=== PATIENT | female | born 1985 | race Caucasian/White ===

== ENCOUNTER 2021-06-24 09:35 | Emergency (ER) | payer OTHER, MEDICAID, SELFPAY ==
[2021-06-24 09:40] VITALS: BP 140/75; PULSE 63; RESP 14; TEMP 36.7; O2SAT 98; BMI 30.4
[2021-06-24 10:08] LABS: COVID19 -Nasal RAPID Negative (Negative)
--- NOTE | 2021-06-24 10:35 | ED_ITS ---
HPI - URI/Sore Throat General Chief Complaint: Upper Respiratory Symptoms Stated Complaint: sore throat and body aches, started yesterday Source: patient Mode of arrival: Ambulatory Limitations: no limitations History of Present Illness HPI Narrative: Patient complains of sore throat, burning sensation for the past 2 days. History of strep throat in feels like the same. No history of tonsillectomy. Gets strep throat every 3 years on average. No trouble breathing. No fever. Related Data Previous Rx's Medication Instructions Recorded promethazine 25 mg tablet 25 mg PO Q6H PRN #5 tab 03/17/20 amoxicillin 500 mg capsule 500 mg PO BID #20 cap 06/24/21 Allergies Allergy/AdvReac Type Severity Reaction Status Date / Time hydrocodone Allergy Mild N/V Verified 03/17/20 14:56 acetaminophen [From PERCOCET] Allergy Unknown Verified 03/17/20 14:56 oxycodone [From PERCOCET] Allergy Unknown Verified 03/17/20 14:56 quetiapine [From Seroquel] Allergy Verified 06/24/21 09:44 Review of Systems Review of Systems Narrative: GENERAL: Denies chills, fatigue, malaise, fever, sweats. HEENT: Denies sinus pain, ear pain, complains of sore throat RESPIRATORY: Denies dyspnea, cough CARDIOVASCULAR: Denies chest pain, palpitations GASTROINTESTINAL: Denies nausea, vomiting, abdominal pain : Denies dysuria, frequency, hematuria MUSCULOSKELETAL: denies muscle or bony pain SKIN: Denies rash, skin lesions NEUROLOGIC: Denies weakness, numbness ROS Unobtainable: All systems reviewed & are unremarkable except as noted in HPI and below Patient History Medical History Acne ADHD Allergies Anxiety Autism Colitis Eczema Frequent UTI Heart murmur Hepatitis C Human papilloma virus Migraines Painful menstrual periods Post traumatic stress disorder (PTSD) Psoriasis Seizures Surgical History Anesthesia History of hand surgery Family History Mother Hypertension Brother Mental health problem Grandfather Diabetes mellitus Family/Other Mental health problem Social History marital status: unmarried,single Smoking Status: Current every day smoker alcohol intake: never substance use type: does not use Smoking Status: Current every day smoker alcohol intake frequency: holidays/special occasions only Substance Use Type: does not use Exam Narrative Exam Narrative: GENERAL: in no distress, not toxic not dyspneic HEAD: Normocephalic. EYES: Pupils equal round No scleral icterus. No injection no discharge ENT: Mucous membranes moist. Bilateral pharyngeal erythema but no edema, no exudates. No tongue elevation number drooling no malocclusion no trismus NECK: Trachea midline. No stridor, mild bilateral submandibular tenderness. No edema or erythema. CARDIOVASCULAR: Regular rate and rhythm without murmurs RESPIRATORY: Clear to auscultation. Breath sounds equal bilaterally. No wheezes, rales, or rhonchi. NEURO: AOx4. SKIN: Warm and dry PSYCH: Not anxious, is cooperative Initial Vital Signs Initial Vital Signs: Vital Signs Temperature 98.1 F 06/24/21 09:40 Pulse Rate 63 06/24/21 09:40 Respiratory Rate 14 06/24/21 09:40 Blood Pressure 140/75 06/24/21 09:40 Pulse Oximetry 98 06/24/21 09:40 Course Course Course Narrative: No new issues during course of stay. Orders Ordered: Discontinued Medications Amoxicillin (Amoxicillin 250 Mg Capsule) 500 mg PO NOW ONE Stop: 06/24/21 10:36 Last Admin: 06/24/21 10:41 Dose: 500 mg Documented by: KATERYNA Reevaluation(s) Reevaluation #1: Patient agrees with treatment plan and return precautions reviewed. Time: 10:39 Vital Signs Vital signs: Vital Signs - 8 hr 06/24/21 09:40 Temperature 98.1 F Pulse Rate 63 Respiratory Rate 14 Blood Pressure 140/75 Pulse Oximetry 98 MDM - URI/Sore Throat Differential Diagnosis Differential diagnosis: Likely upper respiratory infection, viral infection and pharyngitis Lab Data Labs: Lab Results 06/24/21 Range/Units 09:45 SARS-CoV-2 (PCR) Negative (Negative) Point of Care Testing Rapid Strep A Negative MDM Narrative Medical decision making narrative: Will treat clinically for strep throat. Cultures are pending. History of frequent strep throat. Return precautions reviewed with her. Exam otherwise reassuring. Not toxic at discharge Discharge Plan Departure Patient Disposition: Home Clinical Impression: Pharyngitis Qualifiers: Pharyngitis/tonsillitis etiology: unspecified etiology Qualified Code(s): J02.9 - Acute pharyngitis, unspecified Instructions: DI for Pharyngitis/Tonsillopharyngitis -- Adult Activity Restrictions/Additional Instructions: Call provided referral line to teen family doctor. Call today. Keep well hydrated. May continue Tylenol or ibuprofen for pain. Return if worsening questions or concerns or any trouble breathing or any oral swelling. Prescriptions: New amoxicillin 500 mg capsule 500 mg PO BID Qty: 20 RF: 0 No Action promethazine 25 mg tablet 25 mg PO Q6H PRN (Reason: nausea and vomiting) Qty: 5 RF: 0 Referrals: [facility] [Outside]
[2021-06-24] MEDS: AMOXICILLIN 250 MG CAPSULE 500 MG PO (10:41)
[2021-06-24 10:45] VITALS: BP 122/69; PULSE 54; RESP 16; O2SAT 99
== END 2021-06-24 10:47 | disposition home or self-care (01) ==
PROVIDERS: Emergency Provider Emergency Medicine
DX: J02.9 Acute pharyngitis, unspecified (principal); Z20.822 Contact with and (suspected) exposure to COVID-19
CPT/HCPCS: 87635; 87880; 99283; C9803

== ENCOUNTER 2021-09-14 12:59 | Emergency (ER) | payer OTHER, MEDICAID, SELFPAY ==
[2021-09-14 13:02] VITALS: BP 136/77; PULSE 87; RESP 16; TEMP 36.6; O2SAT 99; BMI 22.7
--- NOTE | 2021-09-14 13:34 | ED_ITS ---
HPI - Skin/Abscess/Foreign Bdy <Yari Resendiz PA-C - Last Filed: 09/14/21 16:48> General Chief complaint: Skin/Abscess/Foreign Body Stated complaint: bug bites/ 2 days Time Seen by Provider: 09/14/21 13:13 Source: patient Mode of arrival: Ambulatory Limitations: no limitations History of Present Illness HPI narrative: 36-year-old female with past medical history anxiety presents to the ED with 2 days of all over body rashes. Patient states that she might have been bit by some bugs that caused her sores. Patient endorses itchiness, some discharge from the wounds. Patient reports painless genital lesions. Patient is also requesting a STI check. Patient has had unprotected sex with 2 partners over the last year. Patient denies fever, chills, chest pain, shortness of breath, cough, nausea, vomiting, abdominal pain, dysuria, lightheadedness, dizziness, syncope. States she was treated for hepatitis C 12 years ago. Patient endorses methamphetamine use, last use was 4 days ago. Patient denies recent or current IVDU, last IVDU i 12 years ago. Related Data Previous Rx's Medication Instructions Recorded promethazine 25 mg tablet 25 mg PO Q6H PRN #5 tab 03/17/20 amoxicillin 500 mg capsule 500 mg PO BID #20 cap 06/24/21 cephalexin 500 mg capsule 500 mg PO QID 7 Days #28 cap 09/14/21 sulfamethoxazole 800 1 tab PO BID 7 Days #14 tab 09/14/21 mg-trimethoprim 160 mg tablet (Bactrim DS) Allergies Allergy/AdvReac Type Severity Reaction Status Date / Time hydrocodone Allergy Mild N/V Verified 09/14/21 13:08 acetaminophen [From PERCOCET] Allergy Unknown Verified 09/14/21 13:08 oxycodone [From PERCOCET] Allergy Unknown Verified 09/14/21 13:08 quetiapine [From Seroquel] Allergy Verified 09/14/21 13:08 Review of Systems <Yari Resendiz PA-C - Last Filed: 09/14/21 16:48> Review of Systems ROS Unobtainable: All systems reviewed & are unremarkable except as noted in HPI and below Constitutional Constitutional: Denies chills, Denies fatigue, Denies fever(s), Denies frequent falls, Denies lethargy and Denies weakness Eyes Eyes: Denies change in vision, Denies eye discharge, Denies irritation and Denies loss of vision ENT Ears, Nose, Mouth, and Throat: Denies change in voice, Denies dizziness, Denies neck pain, Denies sore throat and Denies throat swelling Cardiovascular Cardiovascular: Denies chest pain, Denies irregular heart rhythm, Denies lighth eadedness, Denies palpitations, Denies dyspnea, Denies dyspnea on exertion and Denies orthopnea Respiratory Respiratory: Denies cough, Denies dyspnea, Denies dyspnea on exertion and Denies wheezing Gastrointestinal Gastrointestinal: Denies abdominal pain, Denies change in bowel habits, Denies diarrhea, Denies nausea and Denies vomiting Genitourinary Genitourinary: Denies hematuria, Denies flank pain, Denies urinary incontinence and Denies urinary urgency Musculoskeletal Musculoskeletal: Denies back pain, Denies muscle weakness, Denies neck pain, Denies numbness and Denies tingling Integumentary/Breasts Skin/Breast: Reports pruritus, Denies erythema, Reports rash and Denies wounds Comments: All over itchy body rash, with discharge Neurologic Neurologic: Denies behavioral changes, Denies confusion, Denies dizziness, Denies frequent falls, Denies loss of vision, Denies numbness, Denies tingling and Denies weakness Psychiatric Psychiatric: Denies anxiety, Denies behavioral changes, Denies confusion, Denies depression, Denies homicidal ideation and Denies suicidal ideation Endocrine Endocrine: Denies fatigue, Denies flushing and Denies palpitations Hematologic/Lymphatic Hematologic/Lymphatic: Denies easy bruising Allergic/Immunologic Allergic/Immunologic: Denies urticaria, Denies throat swelling and Denies wheezing Patient History <Yari Resendiz PA-C - Last Filed: 09/14/21 16:48> Medical History Acne ADHD Allergies Anxiety Autism Colitis Eczema Frequent UTI Heart murmur Hepatitis C Human papilloma virus Migraines Painful menstrual periods Post traumatic stress disorder (PTSD) Psoriasis Seizures Surgical History Anesthesia History of hand surgery Family History Mother Hypertension Brother Mental health problem Grandfather Diabetes mellitus Family/Other Mental health problem Social History marital status: unmarried,single Smoking Status: Current every day smoker alcohol intake: never substance use type: does not use Smoking Status: Current every day smoker alcohol intake frequency: holidays/special occasions only Substance Use Type: marijuana Exam <Yari Resendiz PA-C - Last Filed: 09/14/21 16:48> Initial Vital Signs Initial Vital Signs: Vital Signs Temperature 97.8 F 09/14/21 13:02 Pulse Rate 87 09/14/21 13:02 Respiratory Rate 16 09/14/21 13:02 Blood Pressure 136/77 09/14/21 13:02 Pulse Oximetry 99 09/14/21 13:02 Const General: cooperative HENMT Head: normal to inspection Eyes General: appearance normal, both eyes and all related structures Neck Neck: normal visual inspection Chest Chest: normal inspection of the chest Resp Effort & Inspection: normal respiratory effort Auscultation: clear to auscultation bilaterally Cardio Rate: regular rate Rhythm: regular rhythm Other: White, cheesy discharge in the genital region. Painless ulcers noted in the left vulva Skin Rashes: rashes noted Other: Diffuse, All over body sores, itchy, erythematous. No discharge visualized on exam <Rogelio Arias DO - Last Filed: 09/14/21 17:33> Initial Vital Signs Initial Vital Signs: Vital Signs Temperature 97.8 F 09/14/21 13:02 Pulse Rate 87 09/14/21 13:02 Respiratory Rate 16 09/14/21 13:02 Blood Pressure 136/77 09/14/21 13:02 Pulse Oximetry 99 09/14/21 13:02 Course <Yari Resendiz PA-C - Last Filed: 09/14/21 16:48> Orders Ordered: ED Orders 09/14/21 13:58 Chlamydia Gonorrhea PCR -URINE Stat 09/14/21 14:25 HIV 1 & 2 Ab/Ag 4th Gen Combo Stat Hep C Virus Ab w/Reflex Quant Stat Hepatitis B Surface Antigen Stat RPR W Reflex to Titer Stat Discontinued Medications Cephalexin HCl (Cephalexin 250 Mg Capsule) 500 mg PO NOW ONE Stop: 09/14/21 13:54 Last Admin: 09/14/21 14:14 Dose: 500 mg Documented by: CASSANDRA Fluconazole (Fluconazole 150 Mg Tablet) 150 mg PO NOW ONE Stop: 09/14/21 13:56 Last Admin: 09/14/21 14:15 Dose: 150 mg Documented by: CASSANDRA Trimethoprim/Sulfamethoxazole (Trimeth/Sulfa 160/800 (Ds) Tablet) 1 tab PO NOW ONE Stop: 09/14/21 13:54 Last Admin: 09/14/21 14:14 Dose: 1 tab Documented by: CASSANDRA Vital Signs Vital signs: Vital Signs - 8 hr 09/14/21 13:02 Temperature 97.8 F Pulse Rate 87 Respiratory Rate 16 Blood Pressure 136/77 Pulse Oximetry 99 <Rogelio Arias DO - Last Filed: 09/14/21 17:33> Orders Ordered: ED Orders 09/14/21 13:58 Chlamydia Gonorrhea PCR -URINE Stat 09/14/21 14:25 HIV 1 & 2 Ab/Ag 4th Gen Combo Stat Hep C Virus Ab w/Reflex Quant Stat Hepatitis B Surface Antigen Stat RPR W Reflex to Titer Stat Discontinued Medications Cephalexin HCl (Cephalexin 250 Mg Capsule) 500 mg PO NOW ONE Stop: 09/14/21 13:54 Last Admin: 09/14/21 14:14 Dose: 500 mg Documented by: CASSANDRA Fluconazole (Fluconazole 150 Mg Tablet) 150 mg PO NOW ONE Stop: 09/14/21 13:56 Last Admin: 09/14/21 14:15 Dose: 150 mg Documented by: CASSANDRA Trimethoprim/Sulfamethoxazole (Trimeth/Sulfa 160/800 (Ds) Tablet) 1 tab PO NOW ONE Stop: 09/14/21 13:54 Last Admin: 09/14/21 14:14 Dose: 1 tab Documented by: CASSANDRA Vital Signs Vital signs: Vital Signs - 8 hr 09/14/21 13:02 Temperature 97.8 F Pulse Rate 87 Respiratory Rate 16 Blood Pressure 136/77 Pulse Oximetry 99 MDM - Skin/Abscess/Foreign Bdy <Yari Resendiz PA-C - Last Filed: 09/14/21 16:48> Lab Data Labs: Lab Results 09/14/21 Range/Units 13:58 Ur Chlamydia DNA (PCR) Not detected N gonorrhoeae DNA (PCR) Not detected MDM Narrative Medical decision making narrative: 36-year-old female with past medical history anxiety presents to the ED with 2 days of all over body rashes. Concern for cellulitis versus STI. Will test for GC, RPR, hepatitis-B, hepatitis-C, HIV. Will start patient on cephalexin and Bactrim for the rash. GC negative. Patient will be notified of other STI results over the phone. Discharge home with prescriptions for Bactrim and cephalexin. ED return precautions discussed. <Rogelio Arias DO - Last Filed: 09/14/21 17:33> Lab Data Labs: Lab Results 09/14/21 Range/Units 13:58 Ur Chlamydia DNA (PCR) Not detected N gonorrhoeae DNA (PCR) Not detected Discharge Plan Departure Patient Disposition: Home Clinical Impression: Cellulitis Instructions: DI for Cellulitis -- Adult Activity Restrictions/Additional Instructions: You were evaluated for rash in the ED today. Your rash appears to be infected. Are being treated with the antibiotics cephalexin and Bactrim for the skin infection. Please continue to take the antibiotics and finish the course. Return to the ED if you notice any worsening of your symptoms, you experience fever, chills, chest pain, shortness of breath. You also requested STI testing today. You are negative for chlamydia and gonorrhea. The syphilis, hepatitis- B, hepatitis-C, HIV test results will be back in 1-2 days, you will be called if there are any abnormal test results. Please follow-up with your PCP. Prescriptions: New cephalexin 500 mg capsule 500 mg PO QID 7 Days Qty: 28 0RF sulfamethoxazole-trimethoprim [Bactrim DS] 800-160 mg tablet 1 tab PO BID 7 Days Qty: 14 0RF No Action promethazine 25 mg tablet 25 mg PO Q6H PRN (Reason: nausea and vomiting) Qty: 5 0RF amoxicillin 500 mg capsule 500 mg PO BID Qty: 20 0RF <Rogelio Arias DO - Last Filed: 09/14/21 17:33> Cosign ED Attending Cosignature Attestation: Dr Arias Co-Sign Statement: I was available for consultation during this patient's emergency department visit. This chart is signed by myself for administrative purposes only. I did not have direct contact with this patient during this visit. They were seen independently by the APC.
[2021-09-14] MEDS: TRIMETH/SULFA 160/800 (DS) TABLET 1 TAB PO (14:14)
[2021-09-14] MEDS: cephALEXin 250 MG CAPSULE 500 MG PO (14:14)
[2021-09-14] MEDS: FLUCONAZOLE 150 MG TABLET PO (14:15)
[2021-09-14 15:58] LABS: Urine N gonorrhoeae NOT DETECTED
[2021-09-14 16:07] LABS: Urine Chlamydia NOT DETECTED
[2021-09-15 08:09] LABS: RPR Screen Non Reactive (Non Reactive)
[2021-09-16 17:30] LABS: Hepatitis B Surface Antigen NEGATIVE s/c (NEGATIVE)
[2021-09-16 17:46] LABS: HIV 1 & 2 Ab/Ag 4th Gen Combo NEGATIVE (NEGATIVE); Hep C Virus Ab w/Reflex Quant REACTIVE s/c (NEGATIVE)
== END 2021-09-14 17:00 | disposition home or self-care (01) ==
PROVIDERS: Emergency Provider Student in an Organized Health Care Education/Training Program
DX: L03.90 Cellulitis, unspecified (principal); R21 Rash and other nonspecific skin eruption
CPT/HCPCS: 36415; 86592; 86803; 87340; 87389; 87491; 87522; 87591; 99283

== ENCOUNTER 2021-11-16 10:39 | Emergency (ER) | payer OTHER, MEDICAID, SELFPAY ==
--- NOTE | 2021-11-16 10:54 | ED.GENADULT ---
HPI - General Adult General Chief complaint: Upper Respiratory Symptoms Stated complaint: shaky/cough/chills x3 days Time Seen by Provider: 11/16/21 10:52 Source: patient Mode of arrival: Ambulatory Limitations: no limitations History of Present Illness HPI narrative: 36-year-old female with complaint of 3 days of chills, shakiness and nonproductive cough. Patient has had a little bit nasal congestion. She has little bit of shortness of breath. No chest pain. She has had some nausea. She has had a little bit of diarrhea but states she gets that frequently normally. Patient denies any dysuria urgency or frequency. She states she was treated for cellulitis on her lower extremities and abdomen which has significantly improved. Patient denies any medical issues but states she is allergic to Seroquel several other medications. She does smoke, she does drink alcohol, she denies any illicit although in EMR has marijuana. She is vaccinated x2 for COVID. Related Data Previous Rx's Medication Instructions Recorded promethazine 25 mg tablet 25 mg PO Q6H PRN #5 tab 03/17/20 amoxicillin 500 mg capsule 500 mg PO BID #20 cap 06/24/21 Allergies Allergy/AdvReac Type Severity Reaction Status Date / Time hydrocodone Allergy Mild N/V Verified 11/16/21 10:56 acetaminophen [From PERCOCET] Allergy Unknown Verified 11/16/21 10:56 oxycodone [From PERCOCET] Allergy Unknown Verified 11/16/21 10:56 quetiapine [From Seroquel] Allergy Verified 11/16/21 10:56 Review of Systems Review of Systems ROS Unobtainable: All systems reviewed & are unremarkable except as noted in HPI and below Patient History Medical History Acne ADHD Allergies Anxiety Autism Colitis Eczema Frequent UTI Heart murmur Hepatitis C Human papilloma virus Migraines Painful menstrual periods Post traumatic stress disorder (PTSD) Psoriasis Seizures Surgical History Anesthesia History of hand surgery Family History Mother Hypertension Brother Mental health problem Grandfather Diabetes mellitus Family/Other Mental health problem Social History marital status: unmarried,single Smoking Status: Current every day smoker alcohol intake: never substance use type: does not use Smoking Status: Current every day smoker alcohol intake frequency: holidays/special occasions only Substance Use Type: marijuana Exam Narrative Exam Narrative: GEN: well nourished, well appearing female, alert and oriented x 3, patient appears to be in mild distress. HEENT: Atraumatic, pupils are equal round reactive to light, extraocular movements are intact. HEART: Regular rate and rhythm without murmur, clicks, rubs. LUNGS:Lungs clear to auscultation, no wheezes, rales, crackles, chest moves symmetrically. No tachypnea accessory muscle use. ABD:bowel sounds normal, soft, non-tender, no guarding, rebound, rigidity, no masses noted, no hepatosplenomegaly :No CVA tenderness MSCL: Non-tender, no muscle atrophy, muscles strength 5/5 upper and lower extremities, full range of motion, normal gait NEURO:CN 2-12 intact, sensation normal SKIN: Warmth, erythema or cellulitic changes. Patient has multiple areas on her lower extremities and upper extremities that are punctate wounds that have healed. Initial Vital Signs Initial Vital Signs: Vital Signs Temperature 97.5 F L 11/16/21 10:56 Pulse Rate 66 11/16/21 10:56 Respiratory Rate 18 11/16/21 10:56 Blood Pressure 136/73 11/16/21 10:56 Pulse Oximetry 98 11/16/21 10:56 Course Orders Ordered: ED Orders 11/16/21 10:50 COVID19 -Nasal swab/Pre-Proc Stat 11/16/21 11:12 Chest [XR chest 1V] Stat Vital Signs Vital signs: Vital Signs - 8 hr 11/16/21 12:33 Temperature 98.6 F Pulse Rate 88 Respiratory Rate 16 Blood Pressure 129/86 Pulse Oximetry 99 Medical Decision Making Lab Data Labs: Lab Results 11/16/21 Range/Units 10:50 SARS-CoV-2 (PCR) Negative (Negative) Point of Care Testing Test Results Negative Urine Dip Bedside Urine Glucose Negative Bedside Urine Bilirubin - Negative Bedside Urine Ketone - Negative Urine Specific [place] 1.010 Bedside Urine Occult Blood - Negative Bedside Urine pH 6.5 Bedside Urine Protein - Negative Bedside Urine Urobilinogen - Negative Bedside Urine Nitrite - Negative Bedside Urine Leukocytes - Negative Esterase Point of care testing: Point of Care Testing Test Results Negative Urine Dip Bedside Urine Glucose Negative Bedside Urine Bilirubin - Negative Bedside Urine Ketone - Negative Urine Specific [place] 1.010 Bedside Urine Occult Blood - Negative Bedside Urine pH 6.5 Bedside Urine Protein - Negative Bedside Urine Urobilinogen - Negative Bedside Urine Nitrite - Negative Bedside Urine Leukocytes - Negative Esterase Imaging Data Chest x-ray: Radiologist's Impression: [address] [address] XRay Report Signed Patient: Paula Wong MR#: [id number] : 1985 Acct:[id number] Age/Sex: 36 / F Date of Service: 11/16/21 Loc: ED Accession Number: [id number] ?? Procedure: XR chest 1V Ordering Provider: Luna Alston D.O. PROCEDURE:? XR CHEST 1V ? INDICATIONS:? shaky, chills, congestions x 3 days. ? TECHNIQUE:? One view of the chest was acquired.? ? COMPARISON:? None. ? FINDINGS:? ? Surgical changes and devices:? None.? ? Lungs and pleura:? Lungs are clear.? No pleural effusions or pneumothorax.? ? Mediastinum:? Mediastinal contours appear normal.? Heart size is normal.? ? Bones and chest wall:? No suspicious bony lesions.? Overlying soft tissues appear unremarkable.? ? IMPRESSION:? No acute cardiopulmonary disease process. ? ? Dictated by: Marisela Garcia MD, PhD on 11/16/2021 at 10:40 ? ? Approved by: Marisela Garcia MD, PhD on 11/16/2021 at 10:41?? MDM Narrative Medical decision making narrative: This is a 36-year-old female who has felt shaky with some mild cough and chills for the past 3 days. Physical exam is reassuring. Vitals are reassuring. COVID swab and chest x-ray are negative. Patient had cellulitis which has resolved patient pointed care urine is also negative. Suspect patient may have COVID and tested negative and recommended retesting the next several days but could potentially have influenza or other viral respiratory infection. Discharge Plan Departure Patient Disposition: Home Clinical Impression: Acute upper respiratory infection Instructions: DI for Viral Upper Respiratory Infection -- Adult Activity Restrictions/Additional Instructions: Follow up if you are not having improvement of symptoms. Your covid swab today is negative but it would be appropriate to retest in 1-2 days if you continue to be symptomatic. Please return for persistent symptoms, new chest pain, shortness of breath, persistent vomiting, diarrhea or other new or concerning symptoms Prescriptions: No Action promethazine 25 mg tablet 25 mg PO Q6H PRN (Reason: nausea and vomiting) Qty: 5 0RF amoxicillin 500 mg capsule 500 mg PO BID Qty: 20 0RF
[2021-11-16 10:56] VITALS: BP 136/73; PULSE 66; RESP 18; TEMP 36.4; O2SAT 98; BMI 25.0
--- NOTE | 2021-11-16 11:12 | DI.RAD.S_ITS ---
PROCEDURE: XR CHEST 1V INDICATIONS: shaky, chills, congestions x 3 days. TECHNIQUE: One view of the chest was acquired. COMPARISON: None. FINDINGS: Surgical changes and devices: None. Lungs and pleura: Lungs are clear. No pleural effusions or pneumothorax. Mediastinum: Mediastinal contours appear normal. Heart size is normal. Bones and chest wall: No suspicious bony lesions. Overlying soft tissues appear unremarkable. IMPRESSION: No acute cardiopulmonary disease process. Dictated by: Marisela Garcia MD, PhD on 11/16/2021 at 10:40 Approved by: Marisela Garcia MD, PhD on 11/16/2021 at 10:41
[2021-11-16 11:21] LABS: COVID19 -Nasal RAPID Negative (Negative)
[2021-11-16 12:33] VITALS: BP 129/86; PULSE 88; RESP 16; TEMP 37; O2SAT 99
== END 2021-11-16 12:34 | disposition home or self-care (01) ==
PROVIDERS: Emergency Provider Emergency Medicine
DX: J06.9 Acute upper respiratory infection, unspecified (principal); F17.200 Nicotine dependence, unspecified, uncomplicated; Z20.822 Contact with and (suspected) exposure to COVID-19
CPT/HCPCS: 71045; 81003; 81025; 87635; 99283; C9803

== ENCOUNTER 2022-02-05 09:29 | Emergency (ER) | payer OTHER, MEDICAID, SELFPAY ==
[2022-02-05 09:41] VITALS: BP 107/62; PULSE 68; RESP 14; TEMP 36.7; O2SAT 99; BMI 20.3
== END 2022-02-05 10:57 | disposition left against medical advice (07) ==
PROVIDERS: Emergency Provider Emergency Medicine
DX: K13.79 Other lesions of oral mucosa (principal)
CPT/HCPCS: 99281

== ENCOUNTER 2023-03-10 20:36 | Emergency (ER) | payer OTHER, MEDICAID, SELFPAY ==
[2023-03-10 20:39] VITALS: BP 149/97; PULSE 89; RESP 17; TEMP 36.6; O2SAT 100
== END 2023-03-11 02:30 | disposition left against medical advice (07) ==
PROVIDERS: Emergency Provider Emergency Medicine
DX: L03.90 Cellulitis, unspecified (principal)
CPT/HCPCS: 99281

== ENCOUNTER 2025-04-03 08:08 | Emergency (ER) | payer OTHER, SELFPAY ==
[2025-04-03 08:24] VITALS: BP 105/59; PULSE 81; RESP 18; TEMP 36.6; O2SAT 97; BMI 23.5
--- NOTE | 2025-04-03 08:25 | ED_ITS ---
HPI - Seizure General Chief Complaint: Seizure Stated Complaint: Had a seizure yesterday Time Seen by Provider: 04/03/25 08:12 History of Present Illness HPI Narrative: Patient dropped off by a friend. Patient is 27 weeks . She does not no her expected due date. She is getting her care at [facility]. Last visit was 2 weeks ago. Denies denies any vaginal bleeding abdominal pain pelvic pain or vaginal discharge or fluid leak. She has felt movements. Patient states she got into a verbal argument with her partner yesterday, she is living out of a vehicle. However she is staying with a friend right now. She does have history of seizures which she is not taking any medications for it because she states it makes it worse. She states she has frequent seizures during but does not state how often. She states she is very tired and nauseous right now. She does not want to talk she states. She did bump her face yesterday during a seizure at her friend's place. Has bruising and abrasion to the left periorbital area. Denies any eye pain. No vision changes. No blurry vision or double vision. EOMI and PERRLA on exam. Patient is awake alert oriented x4. She denies any history of preeclampsia in previous or currently. No history of hypertension. She states she has had upper respiratory symptoms. Has had decreased appetite. She states she feels dehydrated. No urinary complaints. Related Data Previous Rx's ?Medication ?Instructions ?Recorded vit no.133-ferrous 1 tab PO DAILY #30 tabs fumarate 28 mg-folic acid 800 mcg tablet () Allergies Allergy/AdvReac Type Severity Reaction Status Date / Time hydrocodone Allergy Mild N/V Verified 04/03/25 08:24 oxycodone (From PERCOCET) Allergy Unknown Verified 04/03/25 08:24 quetiapine (From Seroquel) Allergy Verified 04/03/25 08:24 Review of Systems Review of Systems Narrative: GENERAL: Negative chills, positive fatigue, malaise, negativefever, sweats. HEENT: Negative sinus pain, ear pain, sore throat, positive congestion RESPIRATORY: Negative dyspnea, positivecough CARDIOVASCULAR: Negative chest pain, palpitations GASTROINTESTINAL: Negative vomiting, positivenausea, negativeabdominal pain : Negative dysuria, frequency, hematuria MUSCULOSKELETAL: Negative muscle or bony pain SKIN: Negative rash, skin lesions, positive skin injury NEUROLOGIC: Negative weakness, numbness ROS Unobtainable: All systems reviewed & are unremarkable except as noted in HPI and below Patient History Medical History Acne ADHD Allergies Anxiety Autism Colitis Eczema Frequent UTI Heart murmur Hepatitis C Human papilloma virus Migraines Painful menstrual periods Post traumatic stress disorder (PTSD) Psoriasis Seizures Surgical History Anesthesia History of hand surgery Family History Mother Hypertension Brother Mental health problem Grandfather Diabetes mellitus Family/Other Mental health problem Social History marital status: unmarried,single Smoking Status: Current some day smoker alcohol intake: never substance use type: does not use alcohol intake frequency: holidays/special occasions only Exam Narrative Exam Narrative: GENERAL: in no distress, not toxic not dyspneic HEAD: Normocephalic. Bruising to the left lateral periorbital area. Skin intact but small scab seen at the corner. EYES: Pupils equal round , PERRLA, EOMI, no blurry or double vision ENT: Mucous membranes moist. NECK: Trachea midline. CARDIOVASCULAR: Regular rate and rhythm RESPIRATORY: Clear to auscultation. Breath sounds equal bilaterally. No wheezes, rales, or rhonchi. GASTROINTESTINAL: Abdomen soft, non-tender , bowel sounds are present. No peritoneal signs. EXTREMITIES: No gross deformities. BACK: No flank tenderness. NEURO: AOx4. Clear speech SKIN: Warm and dry PSYCH: Not anxious, is cooperative Initial Vital Signs Initial Vital Signs: Vital Signs Temperature 97.9 F 04/03/25 08:24 Pulse Rate 81 04/03/25 08:24 Respiratory Rate 18 04/03/25 08:24 Blood Pressure 105/59 L 04/03/25 08:24 Pulse Oximetry 97 04/03/25 08:24 Oxygen Delivery Method Room Air 04/03/25 08:24 Course Orders Ordered: ED Orders 04/03/25 08:21 Consult to [facility]OR EMERGENCY CARE TECHNICIAN - [facility] [employer] [place] Stat 04/03/25 08:31 Respiratory Panel (Film Array) Stat 04/03/25 08:59 CBC Auto Diff [Complete Blood Count AUTO DIFF] Stat CMP [Comprehensive Metabolic Panel] Stat PT [Prothrombin Time INR] Stat PTT Partial Thromboplastin Gino Stat 04/03/25 10:21 CT facial bones wo con Stat CT head/brain wo con Stat Discontinued Medications Diphenhydramine HCl (Diphenhydramine 50 Mg/Ml Vial) 25 mg IV NOW ONE Stop: 04/03/25 08:20 Diphenhydramine HCl (Diphenhydramine 25 Mg Tablet) 25 mg PO NOW ONE Stop: 04/03/25 09:17 Last Admin: 04/03/25 09:22 Dose: 25 mg Documented By: JACQUELINE Sodium Chloride (Normal Saline 0.9%) 1,000 mls @ 1,000 mls/hr IV BOLUS ONE Stop: 04/03/25 09:18 Vital Signs Vital signs: Vital Signs - 8 hr 04/03/25 08:24 04/03/25 13:02 Temperature 97.9 F Pulse Rate 81 83 Respiratory Rate 18 14 Blood Pressure 105/59 L Pulse Oximetry 97 97 Oxygen Delivery Method Room Air Room Air MDM - Seizure Lab Data 04/03/25 08:59 04/03/25 08:59 Labs: Lab Results 04/03/25 04/03/25 Range/Units 08:31 08:59 WBC 12.4 H (4.5-11.0) X10^3/uL RBC 3.49 L (4.0-5.2) X10^6/uL Hgb 10.8 L (12.0-16.0) g/dL Hct 31.3 L (36-46) % MCV 89.8 (80-100) fL MCH 31.1 (26-34) PG MCHC 34.6 (30-36) % RDW 13.2 (11.6-14.8) % Plt Count 256 (150-400) X10^3/uL Neut % (Auto) 87.5 H (50-75) % Lymph % (Auto) 5.4 L (25-40) % Stewart % (Auto) 5.5 (3-14) % Eos % (Auto) 1.2 L (2-4) % Baso % (Auto) 0.4 (0-2) % Neut # (Auto) 67873 H (4860-3405) /uL Lymph # (Auto) 700 L (6117-3667) /uL Stewart # (Auto) 700 (0-900) /uL Eos # (Auto) 100 (0-450) /uL Baso # (Auto) 0 (0-100) /uL PT 10.5 (9.4-12.5) SECONDS INR 0.9 (0.9-1.3) APTT 33 (25.1-36.5) SECONDS Sodium 134 L (137-145) mmol/L Potassium 3.3 L (3.4-5.1) mmol/L Chloride 104 (98-107) mmol/L Carbon Dioxide 21 L (22-32) mmol/L BUN 3 L (7-17) mg/dL Creatinine 0.49 L (0.52-1.04) mg/dL Estimated GFR > 60 (>60) mL/min BUN/Creatinine Ratio 6.1 (6-22) Glucose 89 (70-99) mg/dL Calcium 9.1 (8.4-10.2) mg/dL Total Bilirubin 0.5 (0.2-1.3) mg/dL AST 23 (14-36) IU/L ALT 15 (<35) IU/L Alkaline Phosphatase 107 (38-126) U/L Total Protein 6.4 (6.3-8.2) g/dL Albumin 3.5 (3.5-5.0) g/dL Globulin 2.9 (1.7-4.1) g/dL Albumin/Globulin Ratio 1.2 (1.0-2.8) Chlamy pneumoniae PCR Not detected (Not Detect) Adenovirus (PCR) Not detected (Not Detect) B. pertussis DNA (PCR) Not detected (Not Detect) B.parapertussis DNA PCR Not detected (Not Detecte) Coronavirus OC43 (PCR) Not detected (Not Detect) Coronavirus HKU1 (PCR) Not detected (Not Detect) Coronavirus 229E (PCR) Not detected (Not Detect) SARS-CoV-2 (PCR) Not detected (Not Detecte) Coronavirus NL63 (PCR) Not detected (Not Detect) Human Metapneumovir PCR Not detected (Not Detect) Influenza Type A (PCR) Not detected (Not Detect) Influenza Type B (PCR) Not detected (Not Detect) M. pneumoniae (PCR) Not detected (Not Detect) Parainfluenza 1 (PCR) Not detected (Not Detect) Parainfluenza 2 (PCR) Not detected (Not Detect) Parainfluenza 3 (PCR) Not detected (Not Detect) Parainfluenza 4 (PCR) Not detected (Not Detect) RSV (PCR) Not detected (Not Detect) Entero/Rhino (PCR) Detected H (Not Detect) Imaging Data CT scan - head: Radiologist's Impression: [address] [address] [address] Scan Report Signed Patient: Paula Wong MR#: [id number] : 1985 Acct:[id number] Age/Sex: 39 / F Date of Service: 04/03/25 Loc: ED Accession Number: [id number] Procedure: CT head/brain wo con Ordering Provider: Easton Yao MD PROCEDURE: CT HEAD/BRAIN WO CON INDICATIONS: Trauma/seizure TECHNIQUE: Noncontrast 4.5 mm thick angled axial sections acquired from the foramen magnum to the vertex, with coronal and sagittal reformats. For radiation dose reduction, the following was used: automated exposure control, adjustment of mA and/or kV according to patient size. COMPARISON: [facility], CT, HEAD WITHOUT CONTRAST, 02/19/2015, 1:04. [facility], CT, CT FACIAL BONES WO CON, 04/03/2025, 10:30. FINDINGS: Image quality: This examination is limited by involuntary motion artifact. This evaluation is limited, secondary to the patient's inability to fully cooperate with the examination. CSF spaces: Basal cisterns are patent. No extra-axial fluid collections. Ventricles are normal in size and shape. Brain: No midline shift. No intracranial mass effect or hemorrhage. Rodarte- white matter interface is normal. Skull and face: Calvarium and visualized facial bones are intact, without suspicious lesions. Sinuses: Visualized sinuses and mastoids are clear. IMPRESSION: No acute intracranial hemorrhage is seen. No acute intracranial pathology. Motion limited study. Dictated by: Bryn Paniagua M.D. on 04/03/2025 at 10:07 Approved by: Bryn Paniagua M.D. on 04/03/2025 at 10:09 CT face: Radiologist's Impression: [address] [address] [address] Scan Report Signed Patient: Paula Wong MR#: [id number] : 1985 Acct:[id number] Age/Sex: 39 / F Date of Service: 04/03/25 Loc: ED Accession Number: [id number] Procedure: CT facial bones wo con Ordering Provider: Easton Yao MD PROCEDURE: CT FACIAL BONES WO CON INDICATIONS: Trauma/seizure TECHNIQUE: Noncontrast 2.5 mm thick axial images acquired from the mandible through the frontal sinuses, with coronal and sagittal reformatting. For radiation dose reduction, the following was used: automated exposure control, adjustment of mA and/or kV according to patient size. COMPARISON: [facility], CT, CT HEAD/BRAIN WO CON, 04/03/2025, 10:30. FINDINGS: Image quality: Excellent. Bones and teeth: Orbital vera are intact. Sinus vera show no fracture or deformity. Nasal bones and septum are intact. There is chronic [id number]-kg-[id number] rightward nasal septal deviation, with a rightward directed bony nasal septal spur. Visualized portions of the mandible demonstrate no fractures or subluxation. Zygomatic arches are intact. Pterygoid plates are intact. Visualized portions of the skull base and auditory canals are intact. Poor dentition can be seen, with dental caries seen. Sinuses: Paranasal sinuses are aerated, without fluid levels, mucosal thickening, or mucoceles. Mastoid air cells are aerated. Soft tissues: No edema, masses, or fluid collections. No enlarged lymph nodes. No soft tissue lacerations or debris. Vascular: Visualized vascular structures appear normal in the absence of contrast. Bony vascular foramina and canals are intact. IMPRESSION: No displaced facial bone fracture can be seen. Dictated by: Bryn Paniagua M.D. on 04/03/2025 at 10:09 Approved by: Bryn Paniagua M.D. on 04/03/2025 at 10:10 [facility] Narrative Medical decision making narrative: Patient dropped off by a friend. Patient is 27 weeks . She does not no her expected due date. She is getting her care at [facility]. Last visit was 2 weeks ago. Denies denies any vaginal bleeding abdominal pain pelvic pain or vaginal discharge or fluid leak. She has felt movements. Patient states she got into a verbal argument with her partner yesterday, she is living out of a vehicle. However she is staying with a friend right now. She does have history of seizures which she is not taking any medications for it because she states it makes it worse. She states she has frequent seizures during but does not state how often. She states she is very tired and nauseous right now. She does not want to talk she states. She did bump her face yesterday during a seizure at her friend's place. Has bruising and abrasion to the left periorbital area. Denies any eye pain. No vision changes. No blurry vision or double vision. EOMI and PERRLA on exam. Patient is awake alert oriented x4. She denies any history of preeclampsia in previous or currently. No history of hypertension. She states she has had upper respiratory symptoms. Has had decreased appetite. She states she feels dehydrated. No urinary complaints. After history and exam, Seizure precautions, heart tones normal saline Benadryl respiratory panel CBC CMP PT INR PTT urinalysis MDM Medical records reviewed: I did review patient's visit to [facility] March 05, 2025 for labor and delivery. She did have laboratory studies and ultrasound done there. She has not followed up with them since then. . Drug screen positive for fentanyl and methamphetamine. tracing Doppler heart tone 135. Presentation breech. Placental location posterior. EFW 776 g. Negative GC negative chlamydia. Negative Trichomonas negative Sarai. O-positive blood. Hepatitis-B surface antigen nonreactive hepatitis-C reactive. WBC 11.1 hemoglobin 12.0 hematocrit 34.7 at that time ultrasound based 24 weeks 4 days. No sonographic evidence of complications. She did receive prescription for Flagyl for BV. Hepatitis-C positive. . According to their assessment patient is . . Expected due date is June 21, 2025. . LMP unknown Differential considered: Includes but not limited to recurrent seizure, noncompliance, preeclampsia dehydration UTI viral respiratory infection Lab Test results independently reviewed as above. Pertinent findings: WBC 12.4 hemoglobin 10.8 INR 0.9 sodium 134 potassium 3.3 BUN 3 creatinine 0.49 AST 23 ALT 15 respiratory panel positive rhino virus, patient declined to give urine specimen. Imaging studies independently reviewed: CT head and face no acute finding Consultations: Patient declined OB services. Re-evaluations: 9:18 a.m. nursing staff state that patient has not being cooperative with care. She pulled out her IV after it was placed. Did not receive IV Benadryl or IV fluids as ordered and patient had requested. Now I will provide p.o. Benadryl for nausea. Patient now states she has not had any care. She went over [facility] to get care but she left without getting referral. She has no care. We are waiting for labor delivery Department to do monitoring. She now admits she has had no care. No vitamins 10:20 a.m.. Patient has refused OBGYN monitoring evaluation, OB nurse was at bedside. Patient does want CT head and face because she states she hit her head pretty hard with her seizures. Reviewed with her risks and benefits of CT imaging risks include but not limited to deformity of the baby malformations of baby permanent injury of the baby. She is awake alert oriented x4. She desire CT head of face and head. She did test positive for rhinovirus Discussion: Patient desires discharge home. heart tones 140s. Patient has declined many treatments and options to her today. She is awake alert oriented x4. Referral for OBGYN will again be provided for her. I following with OBGYN services. She has had many opportunities to get OB care. She has chosen not to. Return precautions reviewed. She is living with a friend at this time. She desires discharge home. She does not want any prescriptions or seizure medications or referrals at this time to be contacted. Patient does have history of seizures. I do not believe this is due to preeclampsia or eclampsia. Vital signs are reassuring. Laboratory studies are reassuring. Patient is noncompliant with her medications. She is decisional at this time. She is awake alert oriented x4. Diagnosis: Recurrent seizures noncompliance polysubstance abuse facial contusion Discharge Plan Departure Patient Disposition: Home Clinical Impression: Polysubstance abuse, Non-compliance, Recurrent seizures Contusion of face Qualifiers: Encounter type: initial encounter Qualified Code(s): S00.83XA - Contusion of other part of head, initial encounter Instructions: DI for Eye Contusion, Nausea of (Alternative Therapy), Diet, DI for Seizure Disorder -- Adult, DI for Substance Use Disorder Activity Restrictions/Additional Instructions: Please do not do drugs. Please do call provided OBGYN services today to establish OB care for your baby. You need to establish care for healthy and baby. Please do not do drugs. Prescription for vitamins has been printed for you. Keep well hydrated. Return if worse if any questions or concerns. You will need to review with your OBGYN provider regarding seizure medications. Return if worse if any questions or concerns Prescriptions: New 28-800 mg-mcg tablet 1 tab PO DAILY Qty: 30 0RF Referrals: Benjamin Peralta MD [Physician, Family Practice] Stand Alone Forms: Patient Portal/API
--- NOTE | 2025-04-03 09:02 | PC.NURSE ---
RN attempted IV placement. Pt yelled that RN is fucking incompetent and a lair because you're taking my blood and not putting in an IV! RN explained to patient that IV placement is to obtain blood work and give medications that are ordered by doctor. Pt continued to call RN an incompetent liar and yell profanities while pulling out the 20 gauge IV that was successfully placed.
--- NOTE | 2025-04-03 09:07 | PC.NURSE ---
I went into room to place an IV in patient. I explained to patient the process. She pointed to her vein I used to shoot up there. That is the only vein you can use. I explained to patient that there was a mound of scar tissue there and there would not be a good vein . She said that is your only vein to use. Pt had other veins that could easily have an iv placed. After the insertion of the IV, I was unable to float the IV, got a few drops of blood. She pulled her arm, started to scream. you are an incompetent bitch and don't know how to put an iv in. get someone that is fucken competent. I put a 2x2 on the iv insertion site. I told her that I would get another RN to place the IV. She continued to yell profanities. Dr. Yao aware.
[2025-04-03 09:18] LABS: Add Manual Diff / Slide Review NO; Basophils Absolute Auto 0 /uL (0-100); Basophils Percent Auto 0.4 % (0-2); Eosinophils Absolute Auto 100 /uL (0-450); Eosinophils Percent Auto 1.2 % (2-4); Hematocrit 31.3 % (36-46); Hemoglobin 10.8 g/dL (12.0-16.0); Lymphocytes Absolute Auto 700 /uL (1100-4500); Lymphocytes Percent Auto 5.4 % (25-40); Mean Corpuscular HGB Conc 34.6 % (30-36); Mean Corpuscular Hemoglobin 31.1 PG (26-34); Mean Corpuscular Volume 89.8 fL (80-100); Monocytes Absolute Auto 700 /uL (0-900); Monocytes Percent Auto 5.5 % (3-14); Neutrophils Absolute Auto 10900 /uL (1500-7000); Neutrophils Percent Auto 87.5 % (50-75); Platelet Count 256 X10^3/uL (150-400); Red Blood Cell Count 3.49 X10^6/uL (4.0-5.2); Red Cell Distribution Width 13.2 % (11.6-14.8); White Blood Cell Count 12.4 X10^3/uL (4.5-11.0)
[2025-04-03] MEDS: diphenhydrAMINE 25 MG TABLET PO (09:22)
[2025-04-03 09:24] LABS: INR 0.9 (0.9-1.3); Prothrombin Time 10.5 SECONDS (9.4-12.5)
--- NOTE | 2025-04-03 09:25 | PC.NURSE ---
PT in room resting. She was agreeable to take PO Benadryl for nausea.
[2025-04-03 09:26] LABS: PTT Partial Thromboplastin Tim 33 SECONDS (25.1-36.5)
[2025-04-03 09:29] LABS: Alanine Aminotransferase 15 IU/L (<35); Albumin 3.5 g/dL (3.5-5.0); Albumin Globulin Ratio 1.2 (1.0-2.8); Alkaline Phosphatase 107 U/L (38-126); Aspartate Aminotransferase 23 IU/L (14-36); BUN Creatinine Ratio 6.1 (6-22); Bilirubin Total 0.5 mg/dL (0.2-1.3); Blood Urea Nitrogen 3 mg/dL (7-17); Calcium 9.1 mg/dL (8.4-10.2); Carbon Dioxide 21 mmol/L (22-32); Chloride 104 mmol/L (98-107); Estimated Glomerular Filt Rate > 60 mL/min (>60); Globulin 2.9 g/dL (1.7-4.1); Glucose 89 mg/dL (70-99); HEMOLYSIS < 15 (0-50); Potassium 3.3 mmol/L (3.4-5.1); Sodium 134 mmol/L (137-145); Total Protein 6.4 g/dL (6.3-8.2)
--- NOTE | 2025-04-03 09:31 | PC.NURSE ---
L&D nurses here, obtaining heart tones.
--- NOTE | 2025-04-03 09:35 | PC.NURSE ---
Pt was informed about the importance of having an IV placed to give her medications in case of having another seizure. She stated in a loud voice that she was lied to about getting an IV since blood was obtained. She went on to say in a loud voice that she's not going to be a pin cushion while people learned how to do IV. She also stated that medication doesn't work on her and makes her feel worse. She declined any further attempts for IV placement.
[2025-04-03 09:40] LABS: Adenovirus Not Detected (Not Detect); B. parapertussis Not Detected (Not Detecte); Bordetella pertussis Not Detected (Not Detect); Chlamydophila pneumoniae Not Detected (Not Detect); Coronavirus 229E Not Detected (Not Detect); Coronavirus HKU1 Not Detected (Not Detect); Coronavirus NL 63 Not Detected (Not Detect); Coronavirus OC43 Not Detected (Not Detect); Human Metapneumovirus Not Detected (Not Detect); Human Rhinovirus/Enterovirus Detected (Not Detect); Influenza A Not Detected (Not Detect); Influenza B Not Detected (Not Detect); Mycoplasma pneumoniae Not Detected (Not Detect); Parainfluenza Virus 1 Not Detected (Not Detect); Parainfluenza Virus 2 Not Detected (Not Detect); Parainfluenza Virus 3 Not Detected (Not Detect); Parainfluenza Virus 4 Not Detected (Not Detect); Respiratory Syncytial Virus Not Detected (Not Detect); SARS- CoV-2 Not Detected (Not Detecte)
--- NOTE | 2025-04-03 09:57 | PC.NURSE ---
L&D RN came to ED to perform heart stress test. Pt refused. Pt yelling at L&D RN calling her a fucking incompetent liar. Pt states that she is not going to have the stress test done by a bunch of incompetent liars. ED & L&D RN explained to to patient the importance of having stress test done due to pt's absence of any care. Pt adamantly declined and told both ED & L&D RN to leave me the fuck alone and get the fuck out of my room.
--- NOTE | 2025-04-03 10:17 | PC.NURSE ---
Pt states that she came in to have her head looked at since she hit her head in her car while she was having a seizure. She has swelling her left cheek bone and bruising around her left eye. Pupils PERRLA. No jaw pain. No drainage from ears. MD updated and is wanting to order some imaging. Patient was interviewed about risk vs. benefits of having imaging while being . Patient gave verbal consent and was informed that she may need to give written consent prior to imaging.
--- NOTE | 2025-04-03 10:21 | DI.CT.S_ITS ---
PROCEDURE: CT FACIAL BONES WO CON INDICATIONS: Trauma/seizure TECHNIQUE: Noncontrast 2.5 mm thick axial images acquired from the mandible through the frontal sinuses, with coronal and sagittal reformatting. For radiation dose reduction, the following was used: automated exposure control, adjustment of mA and/or kV according to patient size. COMPARISON: [facility], CT, CT HEAD/BRAIN WO CON, 04/03/2025, 10:30. FINDINGS: Image quality: Excellent. Bones and teeth: Orbital vera are intact. Sinus vera show no fracture or deformity. Nasal bones and septum are intact. There is chronic [id number]-[id number] rightward nasal septal deviation, with a rightward directed bony nasal septal spur. Visualized portions of the mandible demonstrate no fractures or subluxation. Zygomatic arches are intact. Pterygoid plates are intact. Visualized portions of the skull base and auditory canals are intact. Poor dentition can be seen, with dental caries seen. Sinuses: Paranasal sinuses are aerated, without fluid levels, mucosal thickening, or mucoceles. Mastoid air cells are aerated. Soft tissues: No edema, masses, or fluid collections. No enlarged lymph nodes. No soft tissue lacerations or debris. Vascular: Visualized vascular structures appear normal in the absence of contrast. Bony vascular foramina and canals are intact. IMPRESSION: No displaced facial bone fracture can be seen. Dictated by: Bryn Paniagua M.D. on 04/03/2025 at 10:09 Approved by: Bryn Paniagua M.D. on 04/03/2025 at 10:10
--- NOTE | 2025-04-03 10:21 | DI.CT.S_ITS ---
PROCEDURE: CT HEAD/BRAIN WO CON INDICATIONS: Trauma/seizure TECHNIQUE: Noncontrast 4.5 mm thick angled axial sections acquired from the foramen magnum to the vertex, with coronal and sagittal reformats. For radiation dose reduction, the following was used: automated exposure control, adjustment of mA and/or kV according to patient size. COMPARISON: [facility], CT, HEAD WITHOUT CONTRAST, 02/19/2015, 1:04. [facility], CT, CT FACIAL BONES WO CON, 04/03/2025, 10:30. FINDINGS: Image quality: This examination is limited by involuntary motion artifact. This evaluation is limited, secondary to the patient's inability to fully cooperate with the examination. CSF spaces: Basal cisterns are patent. No extra-axial fluid collections. Ventricles are normal in size and shape. Brain: No midline shift. No intracranial mass effect or hemorrhage. Rodarte- white matter interface is normal. Skull and face: Calvarium and visualized facial bones are intact, without suspicious lesions. Sinuses: Visualized sinuses and mastoids are clear. IMPRESSION: No acute intracranial hemorrhage is seen. No acute intracranial pathology. Motion limited study. Dictated by: Bryn Paniagua M.D. on 04/03/2025 at 10:07 Approved by: Bryn Paniagua M.D. on 04/03/2025 at 10:09
--- NOTE | 2025-04-03 10:31 | PC.NURSE ---
PT is on her way to have imaging done.
--- NOTE | 2025-04-03 10:38 | PC.NURSE ---
Pt tolerated CT well enough to obtain imaging. However, the pt continues to be verbally abusive to the staff. She is calmly redirected with boundary setting to bundle helper in a more functional staff/patient relationship. Pt responds well to boundary setting.
--- NOTE | 2025-04-03 12:31 | PC.NURSE ---
04/03/2025 @0929 RN dopplered for 2 minutes, baseline 140, increases noted, no decreased audible, no ctx per patient and none felt per palpation by RN. Krzysztof Murcia RN
[2025-04-03 13:02] VITALS: PULSE 83; RESP 14; O2SAT 97
== END 2025-04-03 13:07 | disposition home or self-care (01) ==
PROVIDERS: Emergency Provider Emergency Medicine
DX: O26.892 Other specified pregnancy related conditions, second trimester (principal); S00.83XA Contusion of other part of head, initial encounter; G40.909 Epilepsy, unspecified, not intractable, without status epilepticus; F19.10 Other psychoactive substance abuse, uncomplicated; Z3A.27 27 weeks gestation of pregnancy
CPT/HCPCS: 70450; 70486; 80053; 85025; 85610; 85730; 87633; 99283; 99284